=== PATIENT | male | born 2000 | race Two or more races ===

== ENCOUNTER 2022-09-11 14:36 | Emergency (ER) | payer MEDICAID ==
[~2022-09-11] VITALS: Ht 167.6 cm; Wt 80.0 kg
[2022-09-11 14:53] VITALS: BP 166/58
[2022-09-11] MEDS ORDERED: CARB15DR63 EACH EAR (19:36)
== END 2022-09-11 19:46 | disposition home or self-care (01) ==
LOC: ER 14:53
DX: H61.23 Impacted cerumen, bilateral (principal)
CPT/HCPCS: 99282

== ENCOUNTER 2023-09-06 18:25 | Emergency (ER) | payer OTHER, MEDICAID ==
[~2023-09-06] VITALS: Ht 175.3 cm; Wt 75.0 kg
[~2023-09-06 18:25] MED LIST: CARB15DR63 EACH EAR
[2023-09-06 18:32] VITALS: O2SAT 98
[2023-09-06] MEDS ORDERED: IBUP-2028 MT (19:11)
[2023-09-06] MEDS ORDERED: IBUPROFEN 400MG TABLET PO ONE (19:15)
[2023-09-06 20:20] VITALS: BP 123/69; PULSE 69; RESP 20; TEMP 98.2
== END 2023-09-06 20:24 | disposition home or self-care (01) ==
LOC: ER 18:25
DX: B34.9 Viral infection, unspecified (principal); Z20.822 Contact with and (suspected) exposure to COVID-19
CPT/HCPCS: 99283; 87426; C9803